=== PATIENT | male | born 2000 | race Caucasian/White ===

== ENCOUNTER 2022-12-04 19:11 | Emergency (ER) | payer SELFPAY ==
[2022-12-04 19:31] VITALS: BP 135/99; PULSE 63; RESP 16; TEMP 36.6; O2SAT 99
--- NOTE | 2022-12-04 20:11 | ED.URI ---
HPI - URI/Sore Throat General Chief Complaint: Upper Respiratory Infection Stated Complaint: Fever/Chills/Congestion Time Seen by Provider: 12/04/22 20:11 Source: patient, RN notes reviewed and old records reviewed Mode of arrival: ambulatory Limitations: no limitations History of Present Illness HPI Narrative: 22 year old accompanied by significant other with complaints of tactile fever, chills, and congestion which started last night and some sore throat.. Patient was not able to go to work today because he was having vomiting and needs work note. Patient reports no known fever today, has not taken any OTC medications for his symptoms. MD elicited complaint: rhinorrhea, nasal congestion and other (vomiting) Onset (ago): day(s) (started last night.) Able to tolerate fluids by mouth: Yes Treatments prior to arrival: none Related Data Allergies Allergy/AdvReac Type Severity Reaction Status Date / Time No Known Allergies Allergy Verified 12/04/22 19:30 Review of Systems Review of Systems: CONSTITUTIONAL: Reports fever, chills, or sweats. EYES: Denies visual changes, redness, or discharge. ENT: REports rhinorrhea, congestion, sore throat, no otalgia. CARDIOVASCULAR: Denies chest pain, palpitations, or edema. RESPIRATORY: Denies cough or dyspnea. GASTROINTESTINAL: Denies any abdominal pain, positive for episodes of nausea, vomiting, no diarrhea. GENITOURINARY: Denies dysuria or hematuria. SKIN: Denies rash or itching. MUSCULOSKELETAL: Denies back pain, joint pain, or myalgia. NEUROLOGIC: Denies headache, numbness, or weakness. PSYCHIATRIC: Denies anxiety or depression. All systems reviewed & are unremarkable except as noted in HPI and below PMFSH Social History Social History (Updated 12/06/22 @ 22:18 by Georgia Carrasquillo NP) Smoking status: Never smoker Alcohol intake: current Alcohol use details: social Substance use: unknown Living arrangements: with friend(s) Gender identity (if verbalized by the patient): Male Comments At time of signature, agree with nursing past medical, surgical, social and family history. There is no relevant family history pertinent to the presenting complaint Exam Narrative: GENERAL: Well-appearing, well-nourished, and in no acute distress. HEAD: Normocephalic, atraumatic. EYES: PERRLA and EOMI. ENT: Nares clear, cear rhinorrhea no epistaxis. Mucous membranes moist.TM's normal throat pink with no swelling post nasal drainage NECK: Supple.no lymphadenopathy CHEST: Clear to auscultation. No respiratory distress.SAO2 99% on room air HEART: Regular rate and rhythm. No murmur heard. Normal peripheral pulses. ABDOMEN: Soft, nontender, nondistended, normal active bowel sounds. no further emesis since this morning has been able to drink fluids well EXTREMITIES: Normal range of motion. No edema. SKIN: Warm, dry, no rash. NEURO: No focal deficits. Alert and oriented x3. Course Course Emergency Course: Patient is aware of diagnosis, understands and agrees to treatment plan.? Anticipatory guidance given.? Patient agrees to follow-up as directed and is aware of reasons to seek care at the emergency department. Portions of this record may have been created with voice recognition software Level of Care: Express Care Visit Vital Signs Vital signs: Vital Signs Temperature 36.6 C 12/04/22 19:31 Pulse Rate 63 12/04/22 19:31 Respiratory Rate 16 12/04/22 19:31 Blood Pressure 135/99 H 12/04/22 19:31 Pulse Oximetry 99 12/04/22 19:31 Oxygen Delivery Room Air 12/04/22 19:31 Temperature 36.6 C 12/04/22 19:31 Pulse Rate 63 12/04/22 19:31 Respiratory Rate 16 12/04/22 19:31 Blood Pressure 135/99 H 12/04/22 19:31 Pulse Oximetry 99 12/04/22 19:31 Oxygen Delivery Room Air 12/04/22 19:31 Reviewed MDM - URI/Sore Throat Differential Diagnosis Differential diagnosis: Likely upper respiratory infection, viral infection and other (rhinitis, nausea an
== END 2022-12-04 20:47 | disposition home or self-care (01) ==
PROVIDERS: Emergency Provider Registered Nurse
DX: B34.9 Viral infection, unspecified (principal); R11.2 Nausea with vomiting, unspecified; Z20.822 Contact with and (suspected) exposure to COVID-19
CPT/HCPCS: 87081; 87426; 87804; 87880; 99213; C9803; G0463